=== PATIENT | female | born 2000 | race Caucasian/White ===

== ENCOUNTER 2022-05-20 18:44 | Emergency (ER) | payer SELFPAY ==
[2022-05-20 18:59] VITALS: BP 126/84; PULSE 84; RESP 18; TEMP 36.7; O2SAT 100; BMI 22.8
--- NOTE | 2022-05-20 19:50 | ED.NURSE ---
[facility] Nurse Britta returned call and will be arriving at 850pm. Relayed information to patient . Discussed patient advocate at this time she is declining patient advocate.
[2022-05-20] MEDS: cefTRIAXone 500 MG VIAL IM (23:05)
[2022-05-20] MEDS: LIDOCAINE 1% 5 ml (pf) 5 ML VIAL 1 ML IM (23:05)
[2022-05-20] MEDS: AZITHROMYCIN 250 MG TABLET 1000 MG PO (23:15)
[2022-05-20] MEDS: metroNIDAZOLE 500 MG TABLET 2000 MG PO (23:16)
[2022-05-20] MEDS: LORazepam 1 MG TABLET PO (23:16)
--- NOTE | 2022-05-20 23:30 | ED.NURSE ---
medications given per MAR. pt. tolerated well. pt. left ER ambulatory.
== END 2022-05-20 23:22 | disposition home or self-care (01) ==
DX: Z53.21 Procedure and treatment not carried out due to patient leaving prior to being seen by health care provider (principal)
CPT/HCPCS: 96372; 99283; A9270; J0696